=== PATIENT | male | born 1985 | race Two or more races ===

== ENCOUNTER 2022-12-14 16:35 | Emergency (ER) | payer MEDICAID ==
[~2022-12-14] VITALS: Ht 175.3 cm; Wt 86.2 kg
--- NOTE | 2022-12-14 17:00 | NUR ---
BIB Sister Joanne "He has been having a psychiatric breakdown the last couple monts/mumbles/ not making sense. Worsening". AMBULATORY, PLACED IN BED, COOPERATIVE- CLAM, WANDED AND GOWNED, WILL CONTINUE TO OBSERVE AND MONITOR.
--- NOTE | 2022-12-14 17:05 | NUR ---
URINE SAMPLE SENT TO LAB
--- NOTE | 2022-12-14 17:14 | NUR ---
GREIGE MENDER AT BEDSIDE
[2022-12-14 17:49] LABS: BILIRUBIN,URINE 1+ (NEGATIVE); COLOR,URINE YELLOW (YELLOW); LEUKOCYTE ESTERASE ,URINE NEGATIVE (NEGATIVE); NITRITE, URINE NEGATIVE (NEGATIVE); PROTEIN,URINE NEGATIVE (NEGATIVE); UGLUCOSE NEGATIVE (NEGATIVE)
[2022-12-14 17:52] LABS: BACTERIA,URINE None seen /HPF (None Seen); MUCUS,URINE Few /LPF (None Seen); RBC,URINE 0-2 /HPF (0-2); SQUAMOUS EPITHELIAL CELL,UR 0-2 /HPF (None Seen); WBC,URINE 0-2 /HPF (0-3)
[2022-12-14 18:03] LABS: BASOPHILS # (AUTO) 0.1 K/uL (0.0-0.2); BASOPHILS % (AUTO) 0.7 % (0.0-2.0); EOSINOPHILS % (AUTO) 0.3 % (0.0-6.0); HEMATOCRIT 41 % (39-51); HEMOGLOBIN 13.4 g/dL (13.5-17.5); LYMPHOCYTES # (AUTO) 2.1 K/uL (0.8-4.8); LYMPHOCYTES % (AUTO) 22.6 % (20.0-44.0); MEAN CORPUSCULAR HGB CONC 33 g/dl (31.0-36.0); MEAN CORPUSCULAR VOLUME 94 fL (80-96); MONOCYTES # (AUTO) 0.8 K/uL (0.1-1.30); MONOCYTES % (AUTO) 8.6 % (2.0-12.0); NEUTROPHILS # (AUTO) 6.2 K/uL (1.8-8.9); NEUTROPHILS % (AUTO) 67.8 % (43.0-81.0); PLATELET COUNT (AUTO) 273 K/uL (150-450); WHITE BLOOD COUNT (AUTO) 9.2 K/uL (4.3-11.0)
[2022-12-14 18:22] LABS: CALCIUM, SERUM 8.9 mg/dL (8.5-10.1); CARBON DIOXIDE 26 mmol/L (21-32); CHLORIDE 108 mmol/L (98-107); CREATININE 0.9 mg/dL (0.6-1.3); GLUCOSE 99 mg/dL (74-106); POTASSIUM 3.6 mmol/L (3.5-5.1); SODIUM SERUM 145 mmol/L (136-145); UREA NITROGEN, BLOOD 18 mg/dL (7-18)
[2022-12-14] MEDS ORDERED: HALOPERIDOL LACTATE INJ 5 MG/ML VIAL ONE (18:29)
[2022-12-14] MEDS ORDERED: diphenhydrAMINE HCL 50 MG/ML VIAL ONE (18:29)
[2022-12-14] MEDS ORDERED: HALOPERIDOL LACTATE INJ 5 MG/ML VIAL IM ONE (18:30)
[2022-12-14] MEDS ORDERED: LORAZEPAM INJ 2 MG/ML VIAL IM ONE (18:30)
[2022-12-14] MEDS ORDERED: diphenhydrAMINE HCL 50 MG/ML VIAL IM ONE (18:30)
[2022-12-14] MEDS ORDERED: LORAZEPAM INJ 2 MG/ML VIAL ONE (18:30)
[2022-12-14 18:35] LABS: ALANINE AMINOTRANSFERASE 35 U/L (12-78); ALBUMIN 3.9 g/dL (3.4-5.0); ALCOHOL, BLOOD < 3 mg/dL (0-10); ALKALINE PHOSPHATASE 84 U/L (46-116); ASPARTATE AMINOTRANSFERASE 31 U/L (15-37); BILIRUBIN,DIRECT 0.1 mg/dL (0.0-0.2); BILIRUBIN,TOTAL 0.3 mg/dL (0.2-1.0); TOTAL PROTEIN, SERUM 7.1 g/dL (6.4-8.2)
--- NOTE | 2022-12-15 00:09 | NUR ---
Patient in bed sleeping, easily aroused. VSS, nosigns of distress.
--- NOTE | 2022-12-15 07:20 | NUR ---
RECECIVED PT IN [facility]ARN[facility] AWAKE FALLOW COMAND RESPIRATION SPONT AND EASY
[2022-12-15] MEDS ORDERED: LORAZEPAM INJ 2 MG/ML VIAL IM ONE (07:30)
[2022-12-15] MEDS ORDERED: LORAZEPAM INJ 2 MG/ML VIAL ONE (07:32)
[2022-12-15 08:12] VITALS: BP 144/86
--- NOTE | 2022-12-15 11:13 | NUR ---
Consult:9 Patient is a 37-year-old male who was brought for [facility] ER by his sister Joanne for being aggressive and combative. "Patient states he was brought in by his sister because she wanted to get rid of him". Pt is oriente x3. Denied suicidal/homicidal ideation. Pt. resides at [address] [place] [address] with his sister Joanne. 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 Patient was not receptive to speaking with SW and was difficult to understand his speech slurry. Patient said "I want to go home. Give me some Prozac" He declined any referrals. DC Plan: Pt will return back whenever stable to [address] [place] [address]. Patient declined any referrals.
--- NOTE | 2022-12-15 11:36 | NUR ---
SW Consult: Patient is a 37-year-old male who was brought for [facility] ER by his sister Joanne for being aggressive and combative. "Patient states he was brought in by his sister because she wanted to get rid of him". Pt is oriente x3. Denied suicidal/homicidal ideation. Pt. resides at [address] [place] [address] with his sister Joanne. 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 Patient was not receptive to speaking with SW and was difficult to understand his speech slurry. Patient said "I want to go home. Give me some Prozac" He declined any referrals. DC Plan: Pt will return back whenever stable to [address] [place] [address]. Patient declined any referrals.
--- NOTE | 2022-12-15 11:46 | NUR ---
PAGED ART SENIOR COMPENSATION ANALYST FOR CRISIS CONSULT PER DR. ZHANG'S REQUEST
--- NOTE | 2022-12-15 12:10 | NUR ---
CALLED SISTER ОЛЬГА. SISTER IS ABLE TO PICK PT UP
--- NOTE | 2022-12-15 13:47 | NUR ---
SENT PT FACESHEET TO [facility]
--- NOTE | 2022-12-15 14:34 | NUR ---
PT GOING TO [facility] UNDER THE CARE OF DR. JONES NUMBER FOR REPORT [phone] ETA FOR TRANSPORT [phone]
--- NOTE | 2022-12-15 16:50 | NUR ---
PATIENT PICKUP BY [facility] RELIGION DEPARTMENT CHAIR FOR TRANSFER IN A ASTABLE COOPERATIVE BEHAVIOR.
== END 2022-12-15 16:50 ==
LOC: ER 16:43
DX: R45.1 Restlessness and agitation (principal); Z20.822 Contact with and (suspected) exposure to COVID-19
CPT/HCPCS: 99285; 96372 ×3; 85025; 80048; 80076; 81001; 36415; 87426; 80143; 80320; 80307; J2060 ×2; J1200; J1630; C9803; G0480